=== PATIENT | female | born 1995 | race Caucasian/White ===

== ENCOUNTER → 2020-03-03 | Outpatient (CLI) | payer BC | END | disposition home or self-care (01) | LOC: LABWHC1 10:22 | PROVIDERS: ATTEND Obstetrics & Gynecology | DX: Z34.81 Encounter for supervision of other normal pregnancy, first trimester (principal) | CPT/HCPCS: 36415 ==

== ENCOUNTER → 2020-06-17 | Outpatient (CLI) | payer BC, OTHER ==
[2020-06-17 16:23] LABS: HCT 34.7 % (34.0-46.0); HGB 11.7 gm/dL (11.4-16.0); MCH 29.8 pg (25.0-35.0); MCHC 33.7 g/dL (31.0-37.0); MCV 88.3 fL (80.0-100.0); Mean Platelet Volume 7.6; Platelet Count 231 k/uL (150-450); RBC 3.94 m/uL (3.80-5.40); RDW 13.7 % (11.5-15.5)
[2020-06-17 16:59] LABS: Creatinine,Urine Random 57.8 mg/dL; Protein/Creatinine Ratio,Urine 0.208
[2020-06-17 17:20] LABS: ALT 12 U/L (4-34); AST 17 U/L (14-36); African American GFR (CKD) >90 (>60 ml/min/1.73 sqM); Blood Urea Nitrogen 8 mg/dL (7-17); LDH 340 U/L (313-618); Non-African American GFR(CKD) >90 (>60 ml/min/1.73 sqM); Uric Acid 3.1 mg/dL (3.7-7.4)
== END | disposition home or self-care (01) ==
LOC: LABWHC1 15:46
PROVIDERS: ATTEND Obstetrics & Gynecology
DX: O13.9 Gestational [pregnancy-induced] hypertension without significant proteinuria, unspecified trimester (principal); Z3A.00 Weeks of gestation of pregnancy not specified
CPT/HCPCS: 36415; 82565; 82570; 83036; 83615; 84156; 84450; 84460; 84520; 84550; 85027; 87086

== ENCOUNTER 2020-06-19 23:35 | Observation (INO) | payer BC, OTHER ==
[2020-06-20 00:12] LABS: Appearance,Urine Clear (Clear); Bilirubin,Urine Negative (Negative); Blood,Urine Negative (Negative); Color,Urine Light Yellow; Glucose,Urine (UA) Negative (Negative); Ketones,Urine Negative (Negative); Leukocyte Esterase,Urine Negative (Negative); Nitrite,Urine Negative (Negative); PH, Urine 6.5 (5.0-8.0); Protein,Urine Negative (Negative); Specific Gravity,Urine 1.008 (1.001-1.035); Urobilinogen,Urine <2.0 mg/dL (<2.0)
[2020-06-20 00:37] VITALS: BP 148/88; PULSE 92; RESP 16; TEMP 97.1
[2020-06-20 00:57] LABS: Creatinine,Urine Random 55.8 mg/dL; Protein/Creatinine Ratio,Urine 0.215
[2020-06-20 01:31] LABS: Basophils % (A) 0 %; Eosinophils # (A) 0.3 k/uL (0-0.7); Eosinophils % (A) 3 %; HCT 32.4 % (34.0-46.0); HGB 11.2 gm/dL (11.4-16.0); Lymphocytes # (A) 1.8 k/uL (1.0-4.8); Lymphocytes % (A) 19 %; MCHC 34.4 g/dL (31.0-37.0); MCV 87.2 fL (80.0-100.0); Mean Platelet Volume 7.8; Monocytes # (A) 0.6 k/uL (0-1.0); Monocytes % (A) 6 %; Neutrophils # (A) 6.6 k/uL (1.3-7.7); Neutrophils % (A) 70 %; Platelet Count 222 k/uL (150-450); RBC 3.71 m/uL (3.80-5.40); RDW 13.6 % (11.5-15.5); WBC 9.4 k/uL (3.8-10.6)
[2020-06-20 02:14] LABS: ALT 10 U/L (4-34); AST 17 U/L (14-36); African American GFR (CKD) >90 (>60 ml/min/1.73 sqM); Blood Urea Nitrogen 6 mg/dL (7-17); LDH 349 U/L (313-618); Non-African American GFR(CKD) >90 (>60 ml/min/1.73 sqM); Uric Acid 3.5 mg/dL (3.7-7.4)
[2020-06-20] MEDS ORDERED: LABETALOL 100 MG TAB PO SCH (09:00)
--- NOTE | 2020-06-20 10:39 | P.HPOB ---
History of Present Illness H&P Date: 06/20/20 Chief Complaint: Hypertension Judy was admitted last night for exacerbation of blood pressure issues. 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 She was sent to labor and delivery and preeclamptic labs were again ordered. She did have normal preeclamptic labs 2 or 3 days ago and labs last night were also normal. Since being in labor and delivery and after taking her labetalol dose last night all her blood pressures been in a more acceptable range 140s over 80s and 130s over 70s. We'll monitor blood pressures through the night and as long as they are stable will plan discharged home in the morning and will discuss options for changes in therapy versus modified bedrest and taking her off of work for a few days. On physical exam vital signs are stable other than mildly elevated blood pressure heart regular, lungs clear, extremities without pain. Gravid uterus is noted and a category 1 reactive NST is noted. She denies any signs or symptoms of preeclampsia. Past Medical History Additional Past Medical History / Comment(s): chronic HTN History of Any Multi-Drug Resistant Organisms: None Reported Past Surgical History: Adenoidectomy Additional Past Surgical History / Comment(s): tubes in ears Additional Past Anesthesia/Blood Transfusion Reaction / Comment(s): increased BP after anesthesia Past Psychological History: Anxiety, Depression Smoking Status: Never smoker Past Alcohol Use History: None Reported Past Drug Use History: None Reported - Past Family History Mother Family Medical History: No Reported History Medications and Allergies Home Medications Medication Instructions Recorded Confirmed Type Labetalol HCl [Trandate] 1 tab PO TID 06/19/20 06/19/20 History Pnv No.95/Ferrous Fum/Folic AC 1 tab PO ONCE 06/19/20 06/19/20 History [ Multivitamin Tablet] Allergies Allergy/AdvReac Type Severity Reaction Status Date / Time No Known Allergies Allergy Verified 06/19/20 23:41 Exam Osteopathic Statement: *. No significant issues noted on an osteopathic struc tural exam other than those noted in the History and Physical/Consult. Vital Signs Temp Pulse Resp BP Pulse Ox 06/20/20 00:33 97.1 F L 92 16 148/88 97 12/19/20 00:05 97.6 F 98 16 143/88 98 Intake and Output 06/19/20 06/20/20 06/20/20 22:59 06:59 14:59 Other: # Voids 1 Weight 98.883 kg - OBG Physical Exam Breast: both: normal (no masses) Abdomen: bowel sounds normal, no diffuse tenderness, no bruit present, no guarding noted, no hepatomegaly, no splenomegaly, no mass Vulva: both: normal Vagina: normal moisture, no discharge Cervix: no lesion, no discharge Uterus: normal size, normal contour Adnexa: both: normal Anus/Rectum: normal perianal skin, no rectal mass, no hemorrhoids, heme negative Results Result Diagrams: 06/20/20 01:21 06/20/20 01:21 Abnormal Lab Results - Last 24 Hours (Table) 06/20/20 06/20/20 Range/Units 01:21 01:21 RBC 3.71 L (3.80-5.40) m/uL Hgb 11.2 L (11.4-16.0) gm/dL Hct 32.4 L (34.0-46.0) % BUN 6 L (7-17) mg/dL Creatinine 0.46 L (0.52-1.04) mg/dL Uric Acid 3.5 L (3.7-7.4) mg/dL
--- NOTE | 2020-06-20 10:41 | P.DS ---
Providers Date of admission: 06/20/20 00:15 Attending physician: Tra Maria Primary care physician: Stated None Hospital Course: Judy is feeling well this morning her blood pressures to the night have been stable and at this time we'll plan to continue her labetalol 3 her milligrams twice daily. She is however going to be off of work and do modified bedrest at home with intermittent blood pressure checks and keeping a walk sit we can go over on Monday or if she has any blood pressures above 160 systolic or 110 diastolic she is going to call my answering service and will adjust her medication at that time. She has no signs or symptoms of preeclampsia this morning and otherwise her vital signs are stable. She voices no other complaints and is requesting discharge home. I did speak with both she and her and both agreed to and are understanding of the current treatment plan. Patient Condition at Discharge: Good Plan - Discharge Summary New Discharge Prescriptions: No Action Pnv No.95/Ferrous Fum/Folic AC [ Multivitamin Tablet] 1 tab PO ONCE Labetalol HCl [Trandate] 1 tab PO TID Discharge Medication List Labetalol HCl [Trandate] 1 tab PO TID 06/19/20 [History] Pnv No.95/Ferrous Fum/Folic AC [ Multivitamin Tablet] 1 tab PO ONCE 06/19/20 [History] Follow up Appointment(s)/Referral(s): Tra Maria DO [Doctor of Osteopathic Medicine] - 3 Days Activity/Diet/Wound Care/Special Instructions: Modified bedrest at home. Predominantly laying on her left side. She has appointment with me on Monday for repeat blood pressure check. He is going to get a blood pressure cuff today and check her blood pressure a few times a day and record and if her blood pressures above 160 or above 110 she will notify me and we'll discuss options for changing treatment. Otherwise if blood pressures remained stable modified bedrest may be all she needs as her blood pressures see med to go up when she is at work. Discharge Disposition: HOME SELF-CARE
== END 2020-06-20 11:20 | disposition home or self-care (01) ==
LOC: FBPOP 23:35 → 4FBP 06-20 00:15
PROVIDERS: ADMIT Obstetrics & Gynecology; ATTEND Obstetrics & Gynecology
DX: O16.3 Unspecified maternal hypertension, third trimester (principal); Z3A.32 32 weeks gestation of pregnancy; F41.9 Anxiety disorder, unspecified; F32.9 Major depressive disorder, single episode, unspecified; Z79.899 Other long term (current) drug therapy; Z90.89 Acquired absence of other organs; Z98.890 Other specified postprocedural states
CPT/HCPCS: 59025; 81003; 82565; 82570; 83615; 84156; 84450; 84460; 84520; 84550; 85025; 99215

== ENCOUNTER 2020-06-27 13:42 | Outpatient (CLI) | payer BC, OTHER ==
[2020-06-27 14:23] VITALS: BP 130/75; PULSE 88; RESP 18; TEMP 98.6
--- NOTE | 2020-06-28 05:24 | P.MSEPDOC ---
Presenting Problems - Arrival Data Date of Arrival on Unit: 06/27/20 Time of Arrival on Unit: 13:42 Mode of Transport: Ambulatory - Complaint OB-Reason for Admission/Chief Complaint: NST Comment: Here with order from office for NST Medical History - Information : 1 Para: 0 Term: 0 : 0 Abortions: Spontaneous or Elective: 0 Number of Living Children: 0 - Gestational Age Gestational Age by STEVE (wks/days): 33 Weeks and 3 Days - History Complications: Chronic HTN Review of Systems - Review of Systems Constitutional: No problems Breast: No problems ENT: No problems Cardiovascular: No problems Respiratory: No problems Gastrointestinal: No problems Genitourinary: No problems Musculoskeletal: No problems Neurological: No problems Skin: No problems Vital Signs - Temperature Temperature: 98.6 F Temperature Source: Temporal Artery Scan - Pulse Right Pulse Rate: 88 Pulse Assessment Method: Automatic Cuff - Respirations Respiratory Rate: 18 Oxygen Delivery Method: Room Air O2 Sat by Pulse Oximetry: 97 - Blood Pressure Right Arm Blood Pressure: 130/75 Blood Pressure Mean: 93 Blood Pressure Source: Automatic Cuff Medical Screen Scoring (Pre) - Cervical Exam Dilation: Exam Deferred Effacement: Exam Deferred Membranes: Intact - Uterine Contractions Frequency: N/A Duration: N/A Intensity: N/A - Maternal Vital Signs Maternal Temperature: N/A Maternal Blood Pressure: N/A Signs of Preeclampsia: N/A Maternal Respirations: N/A - Maternal Trauma Maternal Trauma: N/A - Assessment - Baby A Baseline FHR: 125 Heart Rate - NICHD Category: Category I (Normal) = 0 NST: Reactive Position: N/A Station: N/A - Total Score - Baby A Total Score - Baby A: 0 - Total Score - Baby B Total Score - Baby B: 0 - Total Score - Baby C Total Score - Baby C: 0 - Level of Risk - Baby A Level of Risk - Baby A: Low (0-5) - Level of Risk - Baby B Level of Risk - Baby B: Low (0-5) - Level of Risk - Baby C Level of Risk - Baby C: Low (0-5) Physician Notification (Pre) - Physician Notified Physician Notified Date: 06/27/20 Physician Notified Time: 14:04 New Order Received: Yes - Notification Comment Comment: RN spoke with Dr. Wynn regarding pt's NST being reactive, BP 130/75. No other complaints. Pt may DC home with regular follow up. Disposition - Disposition OB Disposition: Discharge to home Discharge Date: 06/27/20 Discharge Time: 14:10 I agree with the RN Medical Screening Exam: Yes Risk & Benefit of care provided described in d/c instruction: Yes Diagnosis: ESSENTIAL (PRIMARY) HYPERTENSION
== END 2020-06-27 14:10 | disposition home or self-care (01) ==
LOC: FBPOP 13:42
PROVIDERS: ATTEND Obstetrics & Gynecology
DX: O99.891 Other specified diseases and conditions complicating pregnancy (principal); I10 Essential (primary) hypertension; Z3A.33 33 weeks gestation of pregnancy
CPT/HCPCS: 59025

== ENCOUNTER 2020-07-03 11:40 | Outpatient (CLI) | payer BC, OTHER ==
--- NOTE | 2020-08-13 17:13 | P.MSEPDOC ---
Presenting Problems - Arrival Data Date of Arrival on Unit: 07/03/20 Time of Arrival on Unit: 11:40 Mode of Transport: Ambulatory Disposition - Disposition Discharge Date: 07/03/20 Discharge Time: 12:07 I agree with the RN Medical Screening Exam: Yes Case reviewed; plan agreed upon as documented in EMR&OBIX.: Yes Diagnosis: GESTATIONAL HTN W/O SIGNIFICANT PROTEINURIA, THIRD TRIMESTER (Pt presented for scheduled NST. NST reactive and pt discharged home to f/u as scheduled. )
== END 2020-07-03 12:07 | disposition home or self-care (01) ==
LOC: FBPOP 11:40
PROVIDERS: ATTEND Obstetrics & Gynecology
DX: O13.3 Gestational [pregnancy-induced] hypertension without significant proteinuria, third trimester (principal); Z3A.00 Weeks of gestation of pregnancy not specified
CPT/HCPCS: 59025

== ENCOUNTER 2020-07-11 10:17 | Outpatient (CLI) | payer BC, OTHER ==
[2020-07-11 10:52] VITALS: BP 145/88; PULSE 97; RESP 16; TEMP 97.6
--- NOTE | 2020-07-11 14:43 | P.MSEPDOC ---
Presenting Problems - Arrival Data Date of Arrival on Unit: 07/11/20 Time of Arrival on Unit: 10:20 Mode of Transport: Ambulatory - Complaint OB-Reason for Admission/Chief Complaint: NST Medical History - Information : 1 Para: 0 Number of Living Children: 1 - Gestational Age Gestational Age by STEVE (wks/days): 35 Weeks and 3 Days - History Complications: Chronic HTN Review of Systems - Review of Systems Constitutional: No problems Breast: No problems ENT: No problems Cardiovascular: No problems Respiratory: No problems Gastrointestinal: No problems Genitourinary: No problems Musculoskeletal: No problems Neurological: No problems Skin: No problems Vital Signs - Temperature Temperature: 97.6 F Temperature Source: Temporal Artery Scan - Pulse Right Sitting Brachial Pulse Rate: 97 Pulse Assessment Method: Automatic Cuff - Respirations Respiratory Rate: 16 Oxygen Delivery Method: Room Air - Blood Pressure Right Arm Sitting Blood Pressure: 145/88 Blood Pressure Mean: 107 Blood Pressure Source: Automatic Cuff Medical Screen Scoring (Pre) - Cervical Exam Dilation: Exam Deferred Effacement: Exam Deferred - Uterine Contractions Frequency: N/A Duration: N/A Intensity: N/A - Maternal Vital Signs Maternal Temperature: N/A Maternal Blood Pressure: N/A Signs of Preeclampsia: N/A Maternal Respirations: N/A - Maternal Trauma Maternal Trauma: N/A - Assessment - Baby A Baseline FHR: 130 Heart Rate - NICHD Category: Category I (Normal) = 0 NST: Reactive - Total Score - Baby A Total Score - Baby A: 0 - Total Score - Baby B Total Score - Baby B: 0 - Total Score - Baby C Total Score - Baby C: 0 - Level of Risk - Baby A Level of Risk - Baby A: Low (0-5) - Level of Risk - Baby B Level of Risk - Baby B: Low (0-5) - Level of Risk - Baby C Level of Risk - Baby C: Low (0-5) Physician Notification (Pre) - Physician Notified Physician Notified Date: 07/11/20 Physician Notified Time: 10:40 New Order Received: Yes - Notification Comment Comment: discharge pt at this time Disposition - Disposition OB Disposition: Discharge to home Discharge Date: 07/11/20 Discharge Time: 10:45 I agree with the RN Medical Screening Exam: Yes Risk & Benefit of care provided described in d/c instruction: Yes Diagnosis: PRE-EXISTING ESSENTIAL HTN COMP , THIRD TRIMESTER
== END 2020-07-11 10:45 | disposition home or self-care (01) ==
LOC: FBPOP 10:17
PROVIDERS: ATTEND Obstetrics & Gynecology
DX: O10.013 Pre-existing essential hypertension complicating pregnancy, third trimester (principal); Z3A.35 35 weeks gestation of pregnancy
CPT/HCPCS: 59025; 99213

== ENCOUNTER 2020-07-16 16:59 | Outpatient (CLI) | payer BC, OTHER ==
[2020-07-16 17:54] LABS: Basophils % (A) 0 %; Eosinophils # (A) 0.1 k/uL (0-0.7); Eosinophils % (A) 1 %; HCT 31.6 % (34.0-46.0); HGB 10.9 gm/dL (11.4-16.0); Lymphocytes # (A) 1.3 k/uL (1.0-4.8); Lymphocytes % (A) 14 %; MCH 30.3 pg (25.0-35.0); MCHC 34.5 g/dL (31.0-37.0); MCV 87.9 fL (80.0-100.0); Mean Platelet Volume 7.6; Monocytes # (A) 0.6 k/uL (0-1.0); Monocytes % (A) 6 %; Neutrophils # (A) 6.6 k/uL (1.3-7.7); Neutrophils % (A) 76 %; Platelet Count 264 k/uL (150-450); RBC 3.59 m/uL (3.80-5.40); RDW 13.4 % (11.5-15.5); WBC 8.8 k/uL (3.8-10.6)
[2020-07-16 18:11] LABS: ALT 13 U/L (4-34); AST 18 U/L (14-36); African American GFR (CKD) >90 (>60 ml/min/1.73 sqM); Blood Urea Nitrogen 7 mg/dL (7-17); LDH 306 U/L (313-618); Non-African American GFR(CKD) >90 (>60 ml/min/1.73 sqM); Uric Acid 3.6 mg/dL (3.7-7.4)
[2020-07-16 18:11] LABS: Creatinine,Urine Random 101.9 mg/dL; Protein/Creatinine Ratio,Urine 0.098
[2020-07-16 18:14] LABS: Appearance,Urine Cloudy (Clear); Bacteria,Urine Occasional /hpf; Bilirubin,Urine Negative (Negative); Blood,Urine Negative (Negative); Color,Urine Yellow; Glucose,Urine (UA) Negative (Negative); Hyaline Casts,Urine 1 /lpf (0-2); Ketones,Urine Negative (Negative); Leukocyte Esterase,Urine Trace (Negative); Mucus,Urine Few /hpf; Nitrite,Urine Negative (Negative); Protein,Urine Trace (Negative); RBC,Urine 1 /hpf (0-5); Specific Gravity,Urine 1.015 (1.001-1.035); Squamous Epithelial Cell,Urine 7 /hpf (0-4); Urobilinogen,Urine <2.0 mg/dL (<2.0); WBC,Urine 4 /hpf (0-5)
[2020-07-16 18:35] VITALS: BP 139/87; PULSE 94; RESP 16; TEMP 97.7
--- NOTE | 2020-07-25 20:23 | P.MSEPDOC ---
Presenting Problems - Arrival Data Date of Arrival on Unit: 07/16/20 Time of Arrival on Unit: 16:59 Mode of Transport: Ambulatory - Complaint OB-Reason for Admission/Chief Complaint: PIH Comment: Pt sent c\script for PIH workup Medical History - Information : 1 Para: 0 - Gestational Age Gestational Age by STEVE (wks/days): 36 Weeks and 1 Days - History Complications: Chronic HTN Review of Systems - Review of Systems Constitutional: No problems Breast: No problems ENT: No problems Cardiovascular: No problems Respiratory: No problems Gastrointestinal: No problems Genitourinary: No problems Musculoskeletal: No problems Neurological: No problems Skin: No problems Vital Signs - Temperature Temperature: 97.7 F Temperature Source: Temporal Artery Scan - Pulse Right Sitting Brachial Pulse Rate: 94 Pulse Assessment Method: Automatic Cuff - Respirations Respiratory Rate: 16 Oxygen Delivery Method: Room Air O2 Sat by Pulse Oximetry: 97 - Blood Pressure Right Arm Sitting Blood Pressure: 139/87 Blood Pressure Mean: 104 Blood Pressure Source: Automatic Cuff Medical Screen Scoring (Pre) - Cervical Exam Dilation: Exam Deferred Effacement: Exam Deferred Membranes: Intact - Uterine Contractions Frequency: N/A Duration: N/A Intensity: N/A - Maternal Vital Signs Maternal Temperature: N/A Maternal Blood Pressure: N/A Signs of Preeclampsia: N/A Maternal Respirations: N/A - Maternal Trauma Maternal Trauma: N/A - Assessment - Baby A Baseline FHR: 125 Heart Rate - NICHD Category: Category I (Normal) = 0 NST: Reactive Position: N/A Station: N/A - Total Score - Baby A Total Score - Baby A: 0 - Total Score - Baby B Total Score - Baby B: 0 - Total Score - Baby C Total Score - Baby C: 0 - Level of Risk - Baby A Level of Risk - Baby A: Low (0-5) - Level of Risk - Baby B Level of Risk - Baby B: Low (0-5) - Level of Risk - Baby C Level of Risk - Baby C: Low (0-5) Physician Notification (Pre) - Physician Notified Physician Notified Date: 07/16/20 Physician Notified Time: 18:20 New Order Received: Yes - Notification Comment Comment: Spk c\Dr. Wynn, aware of pts presence and hx, reviewed pts BPs while in. triage, reviewed labs. States to d/c home, maintain bedrest, follow up as scheduled. c\Dr. Maria. Disposition - Disposition OB Disposition: Triage, Discharge to home Discharge Date: 07/16/20 Discharge Time: 18:30 I agree with the RN Medical Screening Exam: Yes Case reviewed; plan agreed upon as documented in EMR&OBIX.: Yes Diagnosis: UNSPECIFIED MATERNAL HYPERTENSION, COMP THE PUERPERIUM
== END 2020-07-16 18:30 | disposition home or self-care (01) ==
LOC: FBPOP 16:59
PROVIDERS: ATTEND Obstetrics & Gynecology
DX: O16.5 Unspecified maternal hypertension, complicating the puerperium (principal); Z3A.36 36 weeks gestation of pregnancy
CPT/HCPCS: 59025; 81001; 82565; 82570; 83615; 84156; 84450; 84460; 84520; 84550; 85025

== ENCOUNTER 2020-07-21 16:40 | Inpatient (IN) | payer BC, OTHER ==
--- NOTE | 2020-07-21 16:56 | P.HPOB ---
History of Present Illness H&P Date: 07/21/20 Chief Complaint: Intrauterine at 37 weeks: Hypertension Judy is a 25-year-old at 36 weeks 6 days gestation who arrives for Cervidil induction. She was seen in my office this afternoon and blood pressure was noted to be 160/94. She's had blood pressure issues throughout the and is a chronic hypertensive on labetalol 300 mg twice daily. In reviewing recommendations from maternal- medicine the rectum and patient was to have her deliver between 37 weeks 0 days and 37 weeks 6 days station, however with her blood pressure again being elevated above 160 the decision to move forward with Cervidil ripening tonight and induction at 37 weeks has been made. Risks of Cervidil ripening and induction were discussed with patient in detail and did include potential risk for abruption, bleeding, need for section, heart tone issues. Her course otherwise had been relatively unremarkable and she did comanage with maternal- medicine throughout the . Pertinent labs did include O+ blood type, Rh and it was negative, rubella is nonimmune. Hepatitis B surface antigen RPR and HIV were all negative as well as groupie strep. At this time she shows no signs or symptoms of preeclampsia and had recent lab work done. Should symptoms develop will plan to order labs and she may as she is aware of need mag sulfate or other measures to combat preeclampsia but at this time she does not appear to have preeclampsia. She denies headache, epigastric pain or visual changes and has normal deep tendon reflexes and scant peripheral and no central edema. A category 1 tracing is noted prior to Cervidil. Past Medical History Additional Past Medical History / Comment(s): chronic HTN History of Any Multi-Drug Resistant Organisms: None Reported Past Surgical History: Adenoidectomy Additional Past Surgical History / Comment(s): tubes in ears Additional Past Anesthesia/Blood Transfusion Reaction / Comment(s): increased BP after anesthesia Smoking Status: Never smoker - Past Family History Mother Family Medical History: No Reported History Medications and Allergies Home Medications Medication Instructions Recorded Confirmed Type Labetalol HCl [Trandate] 1 tab PO BID 06/19/20 07/16/20 History Pnv No.95/Ferrous Fum/Folic AC 1 tab PO DAILY 06/19/20 07/16/20 History [ Multivitamin Tablet] Aspirin [Children's Aspirin] 1 tab PO DAILY 06/27/20 07/16/20 History Esomeprazole Magnesium [NexIUM 20 mg PO DAILY 07/11/20 07/16/20 History 24Hr] Allergies Allergy/AdvReac Type Severity Reaction Status Date / Time No Known Allergies Allergy Verified 07/16/20 17:06 Exam Osteopathic Statement: *. No significant issues noted on an osteopathic st ructural exam other than those noted in the History and Physical/Consult. - OBG Physical Exam Breast: both: normal (no masses) Abdomen: bowel sounds normal, no diffuse tenderness, no bruit present, no guarding noted, no hepatomegaly, no splenomegaly, no mass Vulva: both: normal Vagina: normal moisture, no discharge Cervix: no lesion, no discharge Uterus: normal size, normal contour Adnexa: both: normal Anus/Rectum: normal perianal skin, no rectal mass, no hemorrhoids, heme negative
[2020-07-21] MEDS ORDERED: BUTORPHANOL 1 MG/ML 1 ML VIAL IV PRN (17:37)
[2020-07-21] MEDS ORDERED: DINOPROSTONE 10 MG INSERT.ER VAGINAL ONE (17:37)
[2020-07-21] MEDS ORDERED: ZOLPIDEM 5 MG TAB PO PRN (17:37)
[2020-07-21] MEDS: LABETALOL 100 MG TAB PO SCH (20:15)
[2020-07-21 20:49] LABS: Basophils # (A) 0.1 k/uL (0-0.2); Basophils % (A) 1 %; Eosinophils # (A) 0.2 k/uL (0-0.7); Eosinophils % (A) 2 %; HCT 33.7 % (34.0-46.0); HGB 11.6 gm/dL (11.4-16.0); Lymphocytes # (A) 1.4 k/uL (1.0-4.8); Lymphocytes % (A) 15 %; MCH 29.9 pg (25.0-35.0); MCHC 34.2 g/dL (31.0-37.0); MCV 87.4 fL (80.0-100.0); Mean Platelet Volume 7.3; Monocytes # (A) 0.5 k/uL (0-1.0); Monocytes % (A) 5 %; Neutrophils # (A) 7.4 k/uL (1.3-7.7); Neutrophils % (A) 76 %; Platelet Count 241 k/uL (150-450); RBC 3.86 m/uL (3.80-5.40); RDW 13.7 % (11.5-15.5); WBC 9.7 k/uL (3.8-10.6)
[2020-07-22] MEDS: LACTATED RINGERS 1,000 ML IV SCH ×4 (05:20→21:47)
[2020-07-22] MEDS ORDERED: METHYLERGONOVINE 0.2 MG/ML 1 ML AMP IM PRN (05:21)
[2020-07-22] MEDS ORDERED: LIDOCAINE 0.5% (PF) 5 MG/ML (50 ML SDV) SQ PRN (05:21)
[2020-07-22] MEDS ORDERED: TERBUTALINE 1 MG/ML VIAL SQ PRN (05:21)
[2020-07-22] MEDS ORDERED: CARBOPROST TROMETHAMINE 250 MCG/ML 1 ML AMP IM PRN (05:21)
[2020-07-22] MEDS ORDERED: OXYTOCIN 10 UNIT/ML 1 ML VIAL IM PRN (05:21)
[2020-07-22] MEDS ORDERED: OXYTOCIN 30 UNITS/500 ML NS 30 UNIT in SALINE 1 500ML.BAG IV SCH (05:30)
[2020-07-22] MEDS ORDERED: LACTATED RINGERS 1,000 ML IV SCH (05:30)
[2020-07-22] MEDS: LABETALOL 100 MG TAB PO SCH ×2 (07:50→21:46)
[2020-07-22] MEDS ORDERED: SODIUM CHLORIDE 0.9% 100 ML BAG ONE (14:04)
[2020-07-22] MEDS ORDERED: fentaNYL (PF) 50 MCG/ML 5 ML AMP ONE (14:04)
[2020-07-22] MEDS ORDERED: ROPIVACAINE 5MG/ML 20ML VIAL ONE (14:04)
[2020-07-22] MEDS ORDERED: ONDANSETRON 4 MG/2 ML VIAL IVP PRN (19:17)
[2020-07-23] MEDS ORDERED: ACETAMINOPHEN TAB 325 MG TAB PO PRN (01:52)
[2020-07-23] MEDS ORDERED: diphenhydrAMINE 50 MG CAP PO PRN (01:52)
[2020-07-23] MEDS ORDERED: BENZOCAINE/MENTHOL SPRAY 1 GM/SPRAY AEROSOL TOPICAL PRN (01:52)
[2020-07-23] MEDS ORDERED: diphenhydrAMINE 50 MG/ML 1 ML VIAL IVP PRN ×2 (01:52)
[2020-07-23] MEDS ORDERED: diphenhydrAMINE 25 MG CAP PO PRN (01:52)
[2020-07-23] MEDS ORDERED: LANOLIN CREAM 5 GM TUBE TOPICAL PRN (01:52)
[2020-07-23] MEDS ORDERED: HYDROCORTISONE 2.5% RECTAL CREAM 30 GM TUBE RECTAL PRN (01:52)
[2020-07-23] MEDS ORDERED: HYDROcodone/APAP 5-325MG 1 EACH TAB PO PRN (01:52)
[2020-07-23] MEDS ORDERED: ZOLPIDEM 5 MG TAB PO PRN (01:52)
--- NOTE | 2020-07-23 01:56 | P.PROBDLV ---
Vaginal Delivery Note - . Vaginal Delivery Note: Judy progressed to complete and pushing with spontaneous vaginal delivery of a viable male over an intact perineum. Following delivery of the head from left occiput anterior position anterior posterior shoulders were easily delivered with gentle downward and upward traction followed by the remainder the baby. Mouth and nares were then bulb suctioned and baby was placed on mother's abdomen where the umbilical cord was clamped cut usual fashion following 30 seconds of cord pulsation. Nursery personnel was present and some care. Placenta was then delivered intact Pitocin was added to the IV. Bilateral vaginal wall/periurethral avulsion's were noted and were repaired in running fashion with 3-0 Vicryl following 1% Xylocaine for analgesia. scores were 8 and 9 at one and 5 minutes respectively and weight was 6 lbs. 13 oz. Both mother and baby are currently stable following delivery.
[2020-07-23] MEDS: IBUPROFEN 600 MG TAB PO PRN ×2 (03:01→19:39)
[2020-07-23] MEDS ORDERED: MEASLES-MUMPS-RUBELLA VACC/PF 12,500 UNIT/0.5 ML VIAL SQ ONE (03:39)
[2020-07-23] MEDS: SIMETHICONE 80 MG CHEWABLE PO PRN (04:26)
[2020-07-23] MEDS: LABETALOL 100 MG TAB PO SCH ×2 (10:00→19:49)
[2020-07-23] MEDS: SENNOSIDES-DOCUSATE SODIUM 1 EACH TAB PO SCH ×2 (10:51→19:40)
[2020-07-24] MEDS: IBUPROFEN 600 MG TAB PO PRN ×3 (05:56→23:56)
[2020-07-24] MEDS: SENNOSIDES-DOCUSATE SODIUM 1 EACH TAB PO SCH ×2 (08:08→21:01)
[2020-07-24] MEDS: LABETALOL 100 MG TAB PO SCH ×2 (08:13→21:00)
--- NOTE | 2020-07-24 08:22 | P.PNOBGVD ---
Subjective - Subjective Principal diagnosis: Post day 1 Interval history: Overall Judy is doing very well. She is ambulating, voiding and tolerating her diet. Her blood pressures have been improved since having the baby and last blood pressure was minimally elevated at 140/90 we'll plan to continue current care for now with no designed to change her blood pressure medicines at this time. We'll most likely have her toolroom checker or primary care provider manage that once she is out of her recovery phase and done breast-feeding. Otherwise she is doing well. Vital signs again are overall stable. Heart regular, lungs clear, extremities are without pain abdomen is soft and uterus is firm. Lochia is reported light. Assessment day 1. Plan continue care Patient reports: Reports appetite normal, Reports voiding normally, Reports pain well controlled, Reports ambulating normally [place]: other (Jaundiced) Objective - Latest Vital Signs Latest vital signs: Vital Signs Temp Pulse Resp BP 07/24/20 04:00 97.8 F 84 20 123/81 07/23/20 20:00 98.0 F 99 16 141/89 07/23/20 16:00 98.5 F 76 16 130/76 07/23/20 12:00 98.3 F 72 16 132/78 Intake and Output 07/23/20 07/24/20 07/24/20 22:59 06:59 14:59 Other: # Voids 1 2
[2020-07-24] MEDS: SIMETHICONE 80 MG CHEWABLE PO PRN (10:21)
[2020-07-25] MEDS: LABETALOL 100 MG TAB PO SCH (08:26)
[2020-07-25 09:11] VITALS: RESP 18
[2020-07-25] MEDS: SENNOSIDES-DOCUSATE SODIUM 1 EACH TAB PO SCH (09:12)
--- NOTE | 2020-07-25 09:53 | P.DS ---
Providers Date of admission: 07/21/20 16:40 Expected date of discharge: 07/25/20 Attending physician: Tra Maria Primary care physician: Stated None - Discharge Diagnosis(es) (1) Status post normal vaginal delivery Current Visit: Yes Status: Acute Hospital Course: She presented for Cervidil induction of labor due to worsening chronic hypertension despite medication. She underwent normal vaginal delivery. course.. She'll be discharged home post day #1 in stable condition to follow-up Dr. Mckinley in 6 weeks. Plan - Discharge Summary New Discharge Prescriptions: No Action Pnv No.95/Ferrous Fum/Folic AC [ Multivitamin Tablet] 1 tab PO DAILY Labetalol HCl [Trandate] 1 tab PO BID Aspirin [Children's Aspirin] 1 tab PO DAILY Discharge Medication List Labetalol HCl [Trandate] 1 tab PO BID 06/19/20 [History] Pnv No.95/Ferrous Fum/Folic AC [ Multivitamin Tablet] 1 tab PO DAILY 06/19/20 [History] Aspirin [Children's Aspirin] 1 tab PO DAILY 06/27/20 [History] Follow up Appointment(s)/Referral(s): Tra Maria DO [Doctor of Osteopathic Medicine] - 6 Weeks Discharge Disposition: HOME SELF-CARE
[2020-07-25] MEDS: IBUPROFEN 600 MG TAB PO PRN (12:02)
[2020-07-25 17:42] VITALS: BP 132/75; PULSE 74; TEMP 98.1
== END 2020-07-25 17:02 | disposition home or self-care (01) | DRG 806 ==
LOC: 4FBP 16:40
PROVIDERS: ADMIT Obstetrics & Gynecology; ATTEND Obstetrics & Gynecology
PROC: 3E0P7VZ Introduction of Hormone into Female Reproductive, Via Natural or Artificial Opening (ICD-10-PCS; principal; 2020-07-21)
PROC: 10E0XZZ Delivery of Products of Conception, External Approach (ICD-10-PCS; principal; 2020-07-21)
PROC: 3E0R3NZ Introduction of Analgesics, Hypnotics, Sedatives into Spinal Canal, Percutaneous Approach (ICD-10-PCS; principal; 2020-07-21)
PROC: 00HU33Z Insertion of Infusion Device into Spinal Canal, Percutaneous Approach (ICD-10-PCS; principal; 2020-07-21)
PROC: 0KQM0ZZ Repair Perineum Muscle, Open Approach (ICD-10-PCS; principal; 2020-07-21)
DX: O10.92 Unspecified pre-existing hypertension complicating childbirth (principal); O71.4 Obstetric high vaginal laceration alone; Z37.0 Single live birth; Z90.89 Acquired absence of other organs; Z79.82 Long term (current) use of aspirin; Z79.899 Other long term (current) drug therapy; O71.82 Other specified trauma to perineum and vulva; Z3A.37 37 weeks gestation of pregnancy
CPT/HCPCS: 85025; 86850; 86900; 86901; 88307; 90707

== ENCOUNTER 2020-12-17 12:00 | Emergency (ER) | payer OTHER ==
[2020-12-17] MEDS ORDERED: LABETALOL 5 MG/ML VIAL MDV IVP STA (13:23)
[2020-12-17 13:52] LABS: Basophils % (A) 0 %; Eosinophils # (A) 0.2 k/uL (0-0.7); Eosinophils % (A) 4 %; HCT 37.1 % (34.0-46.0); HGB 13.1 gm/dL (11.4-16.0); Lymphocytes # (A) 0.9 k/uL (1.0-4.8); Lymphocytes % (A) 17 %; MCHC 35.3 g/dL (31.0-37.0); MCV 79.4 fL (80.0-100.0); Mean Platelet Volume 7.6; Monocytes # (A) 0.4 k/uL (0-1.0); Monocytes % (A) 7 %; Neutrophils # (A) 3.8 k/uL (1.3-7.7); Neutrophils % (A) 71 %; Platelet Count 202 k/uL (150-450); RBC 4.67 m/uL (3.80-5.40); RDW 14.4 % (11.5-15.5); WBC 5.4 k/uL (3.8-10.6)
[2020-12-17 13:58] LABS: Appearance,Urine Cloudy (Clear); Bacteria,Urine Occasional /hpf; Bilirubin,Urine Negative (Negative); Blood,Urine Negative (Negative); Color,Urine Yellow; Glucose,Urine (UA) Negative (Negative); Ketones,Urine Negative (Negative); Leukocyte Esterase,Urine Negative (Negative); Mucus,Urine Rare /hpf; Nitrite,Urine Negative (Negative); Protein,Urine Negative (Negative); RBC,Urine 1 /hpf (0-5); Specific Gravity,Urine 1.008 (1.001-1.035); Squamous Epithelial Cell,Urine 16 /hpf (0-4); Urobilinogen,Urine <2.0 mg/dL (<2.0); WBC,Urine 2 /hpf (0-5)
[2020-12-17 14:13] LABS: ALT 11 U/L (4-34); AST 20 U/L (14-36); African American GFR (CKD) >90 (>60 ml/min/1.73 sqM); Albumin 4.4 g/dL (3.5-5.0); Alkaline Phosphatase 72 U/L (38-126); Anion Gap 8 mmol/L; Blood Urea Nitrogen 8 mg/dL (7-17); Calcium 9.5 mg/dL (8.4-10.2); Carbon Dioxide 24 mmol/L (22-30); Chloride 104 mmol/L (98-107); Glucose 97 mg/dL (74-99); Non-African American GFR(CKD) >90 (>60 ml/min/1.73 sqM); Potassium 3.8 mmol/L (3.5-5.1); Sodium 136 mmol/L (137-145); Total Bilirubin 0.5 mg/dL (0.2-1.3); Total Protein 7.2 g/dL (6.3-8.2)
--- NOTE | 2020-12-17 18:14 | US ---
EXAMINATION TYPE: Transabdominal DATE OF EXAM: 12/17/2020 4:56 PM COMPARISON: NONE CLINICAL HISTORY: HTN. HTN EXAM PERFORMED: Transvaginal (TV) and Transabdominal (TA) EXAM MEASUREMENTS: GESTATIONAL AGE / DATING Physician Established: Not yet established Dates by LMP: (9 weeks/1 days) EDC: 07/21/2020 Dates by First Scan: No previous this is first scan Dates by Current Scan for no IUP seen at this time. MATERNAL ANATOMY Uterus: 11.1 x 4.9 x 5.7 cm Right Ovary: Obscured by bowel gas Left Ovary: Obscured by bowel gas Post CDS / Adnexa: wnl Presence of free fluid: wnl Presence of corpus luteal cyst: no Presence of subchorionic bleed: no GESTATION / SURVEY MSD: 0.55 cm Yolk Sac (normal less than 6mm): 2 mm IUP: No IUP seen at this time Beta HcG (if available): Not available at this time IMPRESSION: There is a 2 mm yolk sac with intrauterine gestational sac. No adnexal mass. Follow-up exam recommend ed in 14 days to confirm a living fetus.
--- NOTE | 2020-12-17 18:32 | ED ---
General Adult HPI - General Chief complaint: Recheck/Abnormal Lab/Rx Stated complaint: ?8wks preg, high BP Source: patient, RN notes reviewed Mode of arrival: ambulatory Limitations: no limitations - History of Present Illness Initial comments: 25-year-old well-appearing white female patient presents to the emergency room with increased blood pressure last night at work. Patient states that her blood pressure was 186/112 at work around 6:30. Patient states that she does have a history of hypertension and takes 300 mg of labetalol twice a day and has been taking it for several years however her concern was that she is 8 weeks and she just wanted to make sure that it would not interfere with the . Patient has not had a visit yet. Patient did deliver a baby boy in July 2020 with no complications. Patient denies any chest pain, shortness of breath, nausea vomiting diarrhea or fevers. She denies any headache at this time. Patient also denies any vaginal bleeding or cramping. Patient denies smoking or drinking on a daily basis. -: hour(s) (12) Severity scale (1-10): 0 Associated Symptoms: denies other symptoms Treatments Prior to Arrival: none - Related Data Home Medications Medication Instructions Recorded Confirmed Labetalol HCl [Trandate] 300 mg PO BID 06/19/20 12/17/20 Allergies Allergy/AdvReac Type Severity Reaction Status Date / Time No Known Allergies Allergy Verified 12/17/20 13:50 Last menstrual period: 10/14/20 Patient : Yes Number of weeks : 8 (Has not had visit for confirmation) Review of Systems ROS Statement: Those systems with pertinent positive or pertinent negative responses have been documented in the HPI. ROS Other: All systems not noted in ROS Statement are negative. Past Medical History Past Medical History: Hypertension Additional Past Medical History / Comment(s): chronic HTN History of Any Multi-Drug Resistant Organisms: None Reported Past Surgical History: Adenoidectomy Additional Past Surgical History / Comment(s): tubes in ears Additional Past Anesthesia/Blood Transfusion Reaction / Comment(s): increased BP after anesthesia Past Psychological History: Anxiety, Depression Smoking Status: Never smoker Past Alcohol Use History: None Reported Past Drug Use History: Marijuana - Past Family History Mother Family Medical History: No Reported History General Exam Limitations: no limitations General appearance: alert, in no apparent distress Head exam: Present: atraumatic, normocephalic, normal inspection Eye exam: Present: normal appearance, PERRL, EOMI. Absent: scleral icterus, conjunctival injection, periorbital swelling ENT exam: Present: normal exam, normal oropharynx, mucous membranes moist Neck exam: Present: normal inspection, full ROM. Absent: tenderness, meningismus, lymphadenopathy, thyromegaly Respiratory exam: Present: normal lung sounds bilaterally. Absent: respiratory distress, wheezes, rales, rhonchi, stridor, decreased breath sounds Cardiovascular Exam: Present: regular rate, normal rhythm, normal heart sounds. Absent: systolic murmur, diastolic murmur, rubs, gallop, clicks GI/Abdominal exam: Present: soft, normal bowel sounds. Absent: distended, te nderness, guarding, rebound, rigid Rectal exam: Present: deferred Extremities exam: Present: normal inspection, full ROM, normal capillary refill. Absent: tenderness, pedal edema, joint swelling, calf tenderness Back exam: Present: normal inspection, full ROM. Absent: tenderness, CVA tenderness (R), CVA tenderness (L), muscle spasm, paraspinal tenderness, vertebral tenderness, rash noted Neurological exam: Present: alert, oriented X3, CN II-XII intact Psychiatric exam: Present: normal affect, normal mood Skin exam: Present: warm, dry, intact, normal color. Absent: rash, cyanosis, diaphoretic, erythema, petechiae, pallor, mottled Course Vital Signs 12/17/20 12/17/20 12/17/20 12:15 12:37 12:45 Temperature 99.2 F Pulse Rate 93 81 79 Respiratory 18 18 18 Rate Blood Pressure 186/145 178/111 156/92 O2 Sat by Pulse 98 99 Oximetry 12/17/20 12/17/20 12/17/20 13:30 14:00 14:30 Temperature Pulse Rate 68 75 87 Respiratory 18 18 18 Rate Blood Pressure 148/91 139/84 149/95 O2 Sat by Pulse 99 99 100 Oximetry 12/17/20 15:00 Temperature Pulse Rate 79 Respiratory 18 Rate Blood Pressure 131/92 O2 Sat by Pulse 97 Oximetry Medical Decision Making - Medical Decision Making Patient's blood pressure is down to 131/92 at discharge, ultrasound shows 2 mm yolk sac but no IUP with recommended follow-up in 14 days which is consistent with patient's LMP date of 10/14/2020. Patient denies any vaginal bleeding or abdominal pain. Patient has no shortness of breath or chest pain. Patient does have a history of hypertension and is on currently 300 mg of labetalol twice a day. Patient will be directed to follow up with primary care doctor for continuation of care. Labs are within normal limits with a BUN of 8 and creatinine of 0.67. Patient agreeable to this plan of care. Case discussed with Dr. Angeles - Lab Data Result diagrams: 12/17/20 13:37 12/17/20 13:37 Lab Results 12/17/20 12/17/20 12/17/20 Range/Units 13:37 13:37 13:37 WBC 5.4 (3.8-10.6) k/uL RBC 4.67 (3.80-5.40) m/uL Hgb 13.1 (11.4-16.0) gm/dL Hct 37.1 (34.0-46.0) % MCV 79.4 L (80.0-100.0) fL MCH 28.0 (25.0-35.0) pg MCHC 35.3 (31.0-37.0) g/dL RDW 14.4 (11.5-15.5) % Plt Count 202 (150-450) k/uL MPV 7.6 Neutrophils % 71 % Lymphocytes % 17 % Monocytes % 7 % Eosinophils % 4 % Basophils % 0 % Neutrophils # 3.8 (1.3-7.7) k/uL Lymphocytes # 0.9 L (1.0-4.8) k/uL Monocytes # 0.4 (0-1.0) k/uL Eosinophils # 0.2 (0-0.7) k/uL Basophils # 0.0 (0-0.2) k/uL Sodium 136 L (137-145) mmol/L Potassium 3.8 (3.5-5.1) mmol/L Chloride 104 (98-107) mmol/L Carbon Dioxide 24 (22-30) mmol/L Anion Gap 8 mmol/L BUN 8 (7-17) mg/dL Creatinine 0.67 (0.52-1.04) mg/dL Est GFR (CKD-EPI)AfAm >90 (>60 ml/min/1.73 sqM) Est GFR (CKD-EPI)NonAf >90 (>60 ml/min/1.73 sqM) Glucose 97 (74-99) mg/dL Calcium 9.5 (8.4-10.2) mg/dL Magnesium (1.6-2.3) mg/dL Total Bilirubin 0.5 (0.2-1.3) mg/dL AST 20 (14-36) U/L ALT 11 (4-34) U/L Alkaline Phosphatase 72 (38-126) U/L Total Protein 7.2 (6.3-8.2) g/dL Albumin 4.4 (3.5-5.0) g/dL Urine Color Yellow Urine Appearance Cloudy H (Clear) Urine pH 7.0 (5.0-8.0) Ur Specific [place] 1.008 (1.001-1.035) Urine Protein Negative (Negative) Urine Glucose (UA) Negative (Negative) Urine Ketones Negative (Negative) Urine Blood Negative (Negative) Urine Nitrite Negative (Negative) Urine Bilirubin Negative (Negative) Urine Urobilinogen <2.0 (<2.0) mg/dL Ur Leukocyte Esterase Negative (Negative) Urine RBC 1 (0-5) /hpf Urine WBC 2 (0-5) /hpf Ur Squamous Epith Cells 16 H (0-4) /hpf Urine Bacteria Occasional H (None) /hpf Urine Mucus Rare H (None) /hpf // Range/Units 13:37 WBC (3.8-10.6) k/uL RBC (3.80-5.40) m/uL Hgb (11.4-16.0) gm/dL Hct (34.0-46.0) % MCV (80.0-100.0) fL MCH (25.0-35.0) pg MCHC (31.0-37.0) g/dL RDW (11.5-15.5) % Plt Count (150-450) k/uL MPV Neutrophils % % Lymphocytes % % Monocytes % % Eosinophils % % Basophils % % Neutrophils # (1.3-7.7) k/uL Lymphocytes # (1.0-4.8) k/uL Monocytes # (0-1.0) k/uL Eosinophils # (0-0.7) k/uL Basophils # (0-0.2) k/uL Sodium (137-145) mmol/L Potassium (3.5-5.1) mmol/L Chloride (98-107) mmol/L Carbon Dioxide (22-30) mmol/L Anion Gap mmol/L BUN (7-17) mg/dL Creatinine (0.52-1.04) mg/dL Est GFR (CKD-EPI)AfAm (>60 ml/min/1.73 sqM) Est GFR (CKD-EPI)NonAf (>60 ml/min/1.73 sqM) Glucose (74-99) mg/dL Calcium (8.4-10.2) mg/dL Magnesium 1.9 (1.6-2.3) mg/dL Total Bilirubin (0.2-1.3) mg/dL AST (14-36) U/L ALT (4-34) U/L Alkaline Phosphatase (38-126) U/L Total Protein (6.3-8.2) g/dL Albumin (3.5-5.0) g/dL Urine Color Urine Appearance (Clear) Urine pH (5.0-8.0) Ur Specific [place] (1.001-1.035) Urine Protein (Negative) Urine Glucose (UA) (Negative) Urine Ketones (Negative) Urine Blood (Negative) Urine Nitrite (Negative) Urine Bilirubin (Negative) Urine Urobilinogen (<2.0) mg/dL Ur Leukocyte Esterase (Negative) Urine RBC (0-5) /hpf Urine WBC (0-5) /hpf Ur Squamous Epith Cells (0-4) /hpf Urine Bacteria (None) /hpf Urine Mucus (None) /hpf Disposition Clinical Impression: Hypertension Clinical Impression: (Ruled Out): Hypertension affecting in first trimester Disposition: HOME SELF-CARE Condition: Good Additional Instructions: Continue daily medications of labetalol twice a day. Follow-up with the primary care doctor, return if worsening symptoms Is patient prescribed a controlled substance at d/c from ED?: No Referrals: Seth Coughlin MD [Primary Care Provider] - 1-2 days Time of Disposition: 18:31
[2020-12-17 19:11] VITALS: BP 165/103; PULSE 85; RESP 12; TEMP 99.8
== END 2020-12-17 19:16 | disposition home or self-care (01) ==
LOC: EC 12:00
DX: O10.911 Unspecified pre-existing hypertension complicating pregnancy, first trimester (principal); F12.90 Cannabis use, unspecified, uncomplicated; Z79.899 Other long term (current) drug therapy; Z3A.08 8 weeks gestation of pregnancy
CPT/HCPCS: 36415; 76801; 76817; 80053; 81001; 83735; 85025; 96374; 99284

== ENCOUNTER → 2020-12-21 | Outpatient (CLI) | payer OTHER | END | disposition home or self-care (01) | LOC: LABWHC1 13:01 | PROVIDERS: ATTEND Obstetrics & Gynecology | DX: O02.1 Missed abortion (principal) | CPT/HCPCS: 36415; 84702 ==

== ENCOUNTER → 2020-12-23 | Outpatient (CLI) | payer OTHER ==
--- NOTE | 2020-12-23 14:16 | US ---
EXAMINATION TYPE: Transabdominal DATE OF EXAM: 12/23/2020 12:56 PM COMPARISON: NONE CLINICAL HISTORY: O76 Abnormal or absent heart sounds. scan was too early to see pole EXAM PERFORMED: OBTA,OBTV EXAM MEASUREMENTS: GESTATIONAL AGE / DATING Physician Established: Not yet established Dates by LMP: (10 weeks/0 days) EDC: 07/21/2021 Dates by First Scan: too early to date Dates by Current Scan for: (6 weeks/1 days) EDC: 08/17/2021 MATERNAL ANATOMY Uterus: 9.3 x 6.8 x 5.8cm Right Ovary: 2.7 x 1.7 x 2.0cm Left Ovary: 2.7 x 2.7 x 2.4cm Post CDS / Adnexa: wnl Presence of free fluid: no Presence of corpus luteal cyst: 1.5 x 1.4 x 1.7cm on the right Presence of subchorionic bleed: wnl GESTATION / SURVEY CRL: 0.4 (6 weeks/1 days) MSD: 1.3 (6 weeks/0 days) Yolk Sac (normal less than 6mm): 0.3cm Heart Rate: 114 bpm Rhythm: Normal IUP: Viable IUP Date of LMP: 10/14/2020 Beta HcG (if available): on 12-21-2020 = 12,000 IMPRESSION: Single live intrauterine measuring 6 weeks and 1 day by sonographic criteria.
== END | disposition home or self-care (01) ==
LOC: RADUSWWP 12:15
PROVIDERS: ATTEND Obstetrics & Gynecology
DX: O76 Abnormality in fetal heart rate and rhythm complicating labor and delivery (principal); Z3A.01 Less than 8 weeks gestation of pregnancy
CPT/HCPCS: 76801; 76817; 84702

== ENCOUNTER → 2021-01-22 | Outpatient (CLI) | payer OTHER ==
--- NOTE | 2021-01-22 15:28 | US ---
EXAMINATION TYPE: Transabdominal DATE OF EXAM: 01/22/2021 1:09 PM COMPARISON: 12/23/2020 CLINICAL HISTORY: O46.91 BLEEDING/SPOTTING. spotting EXAM PERFORMED: Transabdominal (TA) EXAM MEASUREMENTS: GESTATIONAL AGE / DATING Physician Established: (10 weeks/3 days) EDC: 08/17/2021 Dates by LMP: (10 weeks/3 days) EDC: 08/17/2021 Dates by First Scan: (10 weeks/3 days) EDC: 08/17/2021 Dates by Current Scan for: (10 weeks/5 days) EDC: 08/15/2021 MATERNAL ANATOMY Uterus: 10.3 x 5.2 x 8.9 cm Right Ovary: 3.1 x 1.4 x 2.3 cm Left Ovary: 2.5 x 1.5 x 1.8 cm Post CDS / Adnexa: wnl Presence of free fluid: no Presence of corpus luteal cyst: no Presence of subchorionic bleed: no GESTATION / SURVEY CRL: 3.8 cm (10 weeks/5 days) Yolk Sac (normal less than 6mm): 4mm Heart Rate: 172 bpm Rhythm: Normal IUP: Viable IUP Beta HcG (if available): Not available at this time IMPRESSION: Single live intrauterine measuring 10 weeks and 5 days gestation by sonographic criteria.
== END | disposition home or self-care (01) ==
LOC: RADUSWWP 13:08
PROVIDERS: ATTEND Obstetrics & Gynecology
DX: O46.91 Antepartum hemorrhage, unspecified, first trimester (principal); Z3A.10 10 weeks gestation of pregnancy
CPT/HCPCS: 76801

== ENCOUNTER 2021-06-21 15:29 | Outpatient (CLI) | payer OTHER ==
[2021-06-21 16:11] LABS: Basophils % (A) 0 %; Eosinophils # (A) 0.1 k/uL (0-0.7); Eosinophils % (A) 1 %; HCT 32.9 % (34.0-46.0); HGB 11.1 gm/dL (11.4-16.0); Lymphocytes # (A) 1.5 k/uL (1.0-4.8); Lymphocytes % (A) 16 %; MCH 29.9 pg (25.0-35.0); MCHC 33.9 g/dL (31.0-37.0); MCV 88.4 fL (80.0-100.0); Monocytes # (A) 0.7 k/uL (0-1.0); Monocytes % (A) 7 %; Neutrophils # (A) 7.1 k/uL (1.3-7.7); Neutrophils % (A) 74 %; Platelet Count 272 k/uL (150-450); RBC 3.73 m/uL (3.80-5.40); RDW 13.1 % (11.5-15.5); WBC 9.6 k/uL (3.8-10.6)
[2021-06-21 16:25] LABS: Appearance,Urine Cloudy (Clear); Bilirubin,Urine Negative (Negative); Blood,Urine Negative (Negative); Budding Yeast,Urine Few /hpf; Color,Urine Yellow; Glucose,Urine (UA) Negative (Negative); Ketones,Urine Negative (Negative); Leukocyte Esterase,Urine Negative (Negative); Mucus,Urine Few /hpf; Nitrite,Urine Negative (Negative); PH, Urine 6.5 (5.0-8.0); Protein,Urine Trace (Negative); RBC,Urine 1 /hpf (0-5); Specific Gravity,Urine 1.021 (1.001-1.035); Squamous Epithelial Cell,Urine 7 /hpf (0-4); Urobilinogen,Urine <2.0 mg/dL (<2.0); WBC,Urine 4 /hpf (0-5)
[2021-06-21 16:33] LABS: ALT 10 U/L (4-34); AST 14 U/L (14-36); African American GFR (CKD) >90 (>60 ml/min/1.73 sqM); Blood Urea Nitrogen 8 mg/dL (7-17); LDH 274 U/L (313-618); Non-African American GFR(CKD) >90 (>60 ml/min/1.73 sqM); Uric Acid 3.5 mg/dL (3.7-7.4)
[2021-06-21 17:11] VITALS: RESP 16; TEMP 98.6
[2021-06-21 17:34] LABS: Creatinine,Urine Random 163.4 mg/dL; Protein/Creatinine Ratio,Urine 0.061
--- NOTE | 2021-06-21 17:59 | P.PN ---
Progress Note - Text Progress Note Date: 06/21/21 Judy was sent over from my office due to elevated blood pressure. She does have chronic hypertension. Her blood pressures have been normal throughout the until today. Her blood pressures minimally elevated at 140s over 90s. She will return to our office on for nonstress test and blood pressure check. Preeclamptic labs are all normal in her protein creatinine ratios 0.06 and she denies headache, epigastric pain or other signs or symptoms of preeclampsia including visual changes. All the questions are answered for her at this time. We'll discharge her home.
[2021-06-21 18:08] VITALS: BP 139/94; PULSE 90
== END 2021-06-21 17:59 | disposition home or self-care (01) ==
LOC: FBPOP 15:29
PROVIDERS: ATTEND Obstetrics & Gynecology
DX: O13.3 Gestational [pregnancy-induced] hypertension without significant proteinuria, third trimester (principal); Z3A.32 32 weeks gestation of pregnancy
CPT/HCPCS: 59025; 82570; 84156; 82565; 83615; 84450; 84460; 84520; 84550; 85025; 81001; G0463; 99215

== ENCOUNTER 2021-06-29 11:10 | Outpatient (CLI) | payer OTHER ==
[2021-06-29 11:56] LABS: Basophils % (A) 0 %; Eosinophils # (A) 0.2 k/uL (0-0.7); Eosinophils % (A) 2 %; HCT 31.6 % (34.0-46.0); HGB 10.7 gm/dL (11.4-16.0); Lymphocytes # (A) 1.3 k/uL (1.0-4.8); Lymphocytes % (A) 13 %; MCH 30.3 pg (25.0-35.0); MCV 89.2 fL (80.0-100.0); Mean Platelet Volume 7.9; Monocytes # (A) 0.5 k/uL (0-1.0); Monocytes % (A) 5 %; Neutrophils # (A) 7.9 k/uL (1.3-7.7); Neutrophils % (A) 78 %; Platelet Count 268 k/uL (150-450); RBC 3.54 m/uL (3.80-5.40); RDW 14.3 % (11.5-15.5); WBC 10.1 k/uL (3.8-10.6)
[2021-06-29 12:11] LABS: Appearance,Urine Cloudy (Clear); Bacteria,Urine Rare /hpf; Bilirubin,Urine Negative (Negative); Blood,Urine Negative (Negative); Color,Urine Yellow; Glucose,Urine (UA) Negative (Negative); Ketones,Urine Negative (Negative); Leukocyte Esterase,Urine Large (Negative); Mucus,Urine Few /hpf; Nitrite,Urine Negative (Negative); PH, Urine 8.5 (5.0-8.0); Protein,Urine 1+ (Negative); RBC,Urine <1 /hpf (0-5); Specific Gravity,Urine 1.022 (1.001-1.035); Squamous Epithelial Cell,Urine 19 /hpf (0-4); Urobilinogen,Urine <2.0 mg/dL (<2.0); WBC,Urine 9 /hpf (0-5)
[2021-06-29 12:13] LABS: ALT 10 U/L (4-34); AST 16 U/L (14-36); African American GFR (CKD) >90 (>60 ml/min/1.73 sqM); Blood Urea Nitrogen 8 mg/dL (7-17); LDH 306 U/L (313-618); Non-African American GFR(CKD) >90 (>60 ml/min/1.73 sqM); Uric Acid 3.7 mg/dL (3.7-7.4)
[2021-06-29 12:42] LABS: Creatinine,Urine Random 164.9 mg/dL; Protein/Creatinine Ratio,Urine 0.049
[2021-06-29 13:06] VITALS: BP 137/89; PULSE 103; RESP 16; TEMP 97.7
== END 2021-06-29 12:59 | disposition home or self-care (01) ==
LOC: FBPOP 11:10
PROVIDERS: ATTEND Obstetrics & Gynecology
DX: O13.3 Gestational [pregnancy-induced] hypertension without significant proteinuria, third trimester (principal); O14.93 Unspecified pre-eclampsia, third trimester; Z3A.33 33 weeks gestation of pregnancy
CPT/HCPCS: 59025; 81001; 82565; 82570; 83615; 84156; 84450; 84460; 84520; 84550; 85025

== ENCOUNTER 2021-07-13 15:27 | Outpatient (CLI) | payer OTHER ==
[2021-07-13 15:53] VITALS: BP 136/65; PULSE 90; RESP 18; TEMP 98
[2021-07-13 16:17] LABS: Amorphous Sediment,Urine Few /hpf; Appearance,Urine Cloudy (Clear); Bilirubin,Urine Negative (Negative); Blood,Urine Negative (Negative); Color,Urine Yellow; Glucose,Urine (UA) Negative (Negative); Ketones,Urine Negative (Negative); Leukocyte Esterase,Urine Small (Negative); Mucus,Urine Moderate /hpf; Nitrite,Urine Negative (Negative); PH, Urine 7.5 (5.0-8.0); Protein,Urine 1+ (Negative); RBC,Urine <1 /hpf (0-5); Specific Gravity,Urine 1.022 (1.001-1.035); Squamous Epithelial Cell,Urine 11 /hpf (0-4); Urobilinogen,Urine <2.0 mg/dL (<2.0); WBC,Urine 8 /hpf (0-5)
[2021-07-13 16:27] LABS: Basophils % (A) 0 %; Eosinophils # (A) 0.1 k/uL (0-0.7); Eosinophils % (A) 1 %; HGB 10.8 gm/dL (11.4-16.0); Lymphocytes # (A) 1.5 k/uL (1.0-4.8); Lymphocytes % (A) 15 %; MCHC 33.7 g/dL (31.0-37.0); MCV 89.1 fL (80.0-100.0); Mean Platelet Volume 8.3; Monocytes # (A) 0.6 k/uL (0-1.0); Monocytes % (A) 6 %; Neutrophils # (A) 7.6 k/uL (1.3-7.7); Neutrophils % (A) 76 %; Platelet Count 267 k/uL (150-450); RBC 3.59 m/uL (3.80-5.40); RDW 14.1 % (11.5-15.5)
[2021-07-13 16:37] LABS: ALT 9 U/L (4-34); AST 17 U/L (14-36); African American GFR (CKD) >90 (>60 ml/min/1.73 sqM); Blood Urea Nitrogen 6 mg/dL (7-17); LDH 490 U/L (313-618); Non-African American GFR(CKD) >90 (>60 ml/min/1.73 sqM); Uric Acid 3.7 mg/dL (3.7-7.4)
[2021-07-13 16:57] LABS: Creatinine,Urine Random 185.1 mg/dL; Protein/Creatinine Ratio,Urine 0.049
== END 2021-07-13 17:14 ==
LOC: FBPOP 15:27
PROVIDERS: ATTEND Obstetrics & Gynecology
DX: O13.3 Gestational [pregnancy-induced] hypertension without significant proteinuria, third trimester (principal); Z3A.35 35 weeks gestation of pregnancy
CPT/HCPCS: 59025; 82570; 84156; 82565; 83615; 84450; 84460; 84520; 84550; 85025; 81001; G0463; 99215

== ENCOUNTER 2021-07-16 13:06 | Outpatient (CLI) | payer OTHER ==
[2021-07-16] MEDS ORDERED: LABETALOL 200 MG TAB PO STA (13:41)
[2021-07-16 15:22] VITALS: BP 157/98; PULSE 98; RESP 14; TEMP 98.2
== END 2021-07-16 15:24 | disposition home or self-care (01) ==
LOC: FBPOP 13:06
PROVIDERS: ATTEND Obstetrics & Gynecology
DX: O13.3 Gestational [pregnancy-induced] hypertension without significant proteinuria, third trimester (principal); Z3A.35 35 weeks gestation of pregnancy
CPT/HCPCS: 59025; G0463; 99213

== ENCOUNTER 2021-07-26 05:53 | Inpatient (IN) | payer OTHER ==
[2021-07-26] MEDS ORDERED: METHYLERGONOVINE 0.2 MG/ML 1 ML AMP IM PRN (06:10)
[2021-07-26] MEDS ORDERED: OXYTOCIN 10 UNIT/ML 1 ML VIAL IM PRN (06:10)
[2021-07-26] MEDS ORDERED: LIDOCAINE 1% (PF) 10 MG/ML (30 ML SDV) SQ PRN (06:10)
[2021-07-26] MEDS ORDERED: CARBOPROST TROMETHAMINE 250 MCG/ML 1 ML AMP IM PRN (06:10)
[2021-07-26] MEDS ORDERED: TERBUTALINE 1 MG/ML VIAL SQ PRN (06:10)
[2021-07-26] MEDS ORDERED: OXYTOCIN 30 UNITS/500 ML NS 30 UNIT in SALINE 1 500ML.BAG IV SCH (06:15)
[2021-07-26 06:20] VITALS: RESP 16
[2021-07-26 06:25] LABS: Basophils % (A) 1 %; Eosinophils # (A) 0.2 k/uL (0-0.7); Eosinophils % (A) 2 %; HCT 32.5 % (34.0-46.0); HGB 11.2 gm/dL (11.4-16.0); Lymphocytes % (A) 24 %; MCH 30.4 pg (25.0-35.0); MCHC 34.5 g/dL (31.0-37.0); Monocytes # (A) 0.6 k/uL (0-1.0); Monocytes % (A) 7 %; Neutrophils # (A) 5.6 k/uL (1.3-7.7); Neutrophils % (A) 66 %; Platelet Count 264 k/uL (150-450); RBC 3.69 m/uL (3.80-5.40); RDW 14.3 % (11.5-15.5); WBC 8.6 k/uL (3.8-10.6)
[2021-07-26 06:36] LABS: ALT 11 U/L (4-34); AST 18 U/L (14-36); African American GFR (CKD) >90 (>60 ml/min/1.73 sqM); Blood Urea Nitrogen 9 mg/dL (7-17); LDH 315 U/L (313-618); Non-African American GFR(CKD) >90 (>60 ml/min/1.73 sqM); Uric Acid 4.3 mg/dL (3.7-7.4)
[2021-07-26] MEDS: LACTATED RINGERS 1,000 ML IV SCH ×2 (06:42→10:50)
--- NOTE | 2021-07-26 08:36 | P.HPOB ---
History of Present Illness H&P Date: 07/26/21 Chief Complaint: Intrauterine at term: Chronic hypertension that is worsening Judy is a 18-year-old at 37 weeks gestation who arrives for induction of labor due to chronic hypertension with worsening blood pressures. Blood pressures today have been elevated including 150/109. She normally takes labetalol 4 mg twice daily and aspirin. We'll plan continue this through the day. If she did not take her labetalol this morning we will give her a dose shortly. IV labetalol still is a possibility should it be needed. She has no signs or symptoms of preeclampsia and thus far the labs for preeclampsia have been normal. Otherwise she is gerry all somewhat irregularly artificial rupture membranes was performed with clear fluid noted a category 1 tracing is noted she is dilated to 270% effaced and -3 station. She plans epidural for analgesia. Plan Pitocin augmentation of labor. Past Medical History Past Medical History: Hypertension Additional Past Medical History / Comment(s): chronic HTN History of Any Multi-Drug Resistant Organisms: None Reported Past Surgical History: Adenoidectomy Additional Past Surgical History / Comment(s): tubes in ears Additional Past Anesthesia/Blood Transfusion Reaction / Comment(s): increased BP after anesthesia Past Psychological History: Anxiety, Depression Smoking Status: Never smoker Past Alcohol Use History: None Reported Past Drug Use History: Marijuana - Past Family History Mother Family Medical History: No Reported History Medications and Allergies Home Medications Medication Instructions Recorded Confirmed Type Labetalol HCl [Trandate] 400 mg PO BID 06/21/21 07/26/21 History Pnv No.95/Ferrous Fum/Folic AC 1 each PO DAILY 06/21/21 07/26/21 History [ Multivitamin Tablet] Aspirin 81 mg PO DAILY 06/29/21 07/26/21 History Allergies Allergy/AdvReac Type Severity Reaction Status Date / Time No Known Allergies Allergy Verified 07/26/21 06:09 Exam Osteopathic Statement: *. No significant issues noted on an osteopathic structural exam other than those noted in the History and Physical/Consult. Vital Signs Temp Pulse Resp BP 07/26/21 06:09 96.9 F L 97 16 143/101 Intake and Output 07/25/21 07/26/21 07/26/21 22:59 06:59 14:59 Other: Weight 100.244 kg - OBG Physical Exam Breast: both: normal (no masses) Abdomen: bowel sounds normal, no diffuse tenderness, no bruit present, no guarding noted, no hepatomegaly, no splenomegaly, no mass Vulva: both: normal Vagina: normal moisture, no discharge Cervix: no lesion, no discharge Uterus: normal size, normal contour Adnexa: both: normal Anus/Rectum: normal perianal skin, no rectal mass, no hemorrhoids, heme negative Results Result Diagrams: 07/26/21 06:05 07/26/21 06:05 Abnormal Lab Results - Last 24 Hours (Table) 07/26/21 07/26/21 Range/Units 06:05 06:05 RBC 3.69 L (3.80-5.40) m/uL Hgb 11.2 L (11.4-16.0) gm/dL Hct 32.5 L (34.0-46.0) % Creatinine 0.48 L (0.52-1.04) mg/dL
[2021-07-26] MEDS: PRENATAL VIT-IRON-FOLIC ACID 1 EACH CAP PO SCH (08:45)
[2021-07-26] MEDS: LABETALOL 200 MG TAB PO SCH ×2 (08:45→20:32)
[2021-07-26] MEDS ORDERED: ROPIVACAINE 5MG/ML 20ML VIAL ONE (10:38)
[2021-07-26] MEDS ORDERED: SODIUM CHLORIDE 0.9% 100 ML BAG ONE (10:38)
[2021-07-26] MEDS ORDERED: fentaNYL (PF) 50 MCG/ML 5 ML AMP ONE (10:38)
[2021-07-26] MEDS ORDERED: BENZOCAINE/MENTHOL SPRAY 1 GM/SPRAY AEROSOL TOPICAL PRN (12:32)
[2021-07-26] MEDS ORDERED: SIMETHICONE 80 MG CHEWABLE PO PRN (12:32)
[2021-07-26] MEDS ORDERED: ZOLPIDEM 5 MG TAB PO PRN (12:32)
[2021-07-26] MEDS ORDERED: diphenhydrAMINE 50 MG CAP PO PRN (12:32)
[2021-07-26] MEDS ORDERED: HYDROCORTISONE 2.5% RECTAL CREAM 30 GM TUBE RECTAL PRN (12:32)
[2021-07-26] MEDS ORDERED: diphenhydrAMINE 25 MG CAP PO PRN (12:32)
[2021-07-26] MEDS ORDERED: LANOLIN CREAM 5 GM TUBE TOPICAL PRN (12:32)
[2021-07-26] MEDS ORDERED: ACETAMINOPHEN TAB 325 MG TAB PO PRN (12:32)
[2021-07-26] MEDS ORDERED: diphenhydrAMINE 50 MG/ML 1 ML VIAL IVP PRN ×2 (12:32)
--- NOTE | 2021-07-26 12:34 | P.PROBDLV ---
Vaginal Delivery Note - . Vaginal Delivery Note: Patient progressed complete and pushing with spontaneous vaginal delivery of a viable female over an intact perineum from right [place] anterior position. Lung deliver the head
[2021-07-26] MEDS: IBUPROFEN 600 MG TAB PO SCH (14:20)
[2021-07-26] MEDS: SENNOSIDES-DOCUSATE SODIUM 1 EACH TAB PO SCH (20:19)
[2021-07-27] MEDS: IBUPROFEN 600 MG TAB PO SCH ×2 (00:20→03:21)
[2021-07-27] MEDS: LACTATED RINGERS 1,000 ML IV SCH (00:23)
[2021-07-27 07:43] VITALS: BP 131/85; PULSE 97; TEMP 98.5
--- NOTE | 2021-07-27 08:21 | P.DS ---
Providers Date of admission: 07/26/21 05:53 Expected date of discharge: 07/27/21 Attending physician: Tra Maria Primary care physician: Stated None Hospital Course: Judy is doing very well day 1. She is ambulating, voiding and tolerating her diet. She voices no complaints. Vital signs stable and afebrile. Heart regular, lungs clear, remedies without pain. Abdomen is soft and uterus is firm. Lochia is reported be light. Assessment day 1. Plan discharged home follow up with me in 6 weeks. Pressure for Motrin was 4 to the pharmacy. She'll follow up with her primary care doctor week blood pressure evaluation and preeclamptic discussion and risks were explained. Patient Condition at Discharge: Good Plan - Discharge Summary Discharge Rx Participant: No New Discharge Prescriptions: New Ibuprofen [Motrin] 600 mg PO Q6HR PRN #30 tab PRN Reason: Pain No Action Pnv No.95/Ferrous Fum/Folic AC [ Multivitamin Tablet] 1 each PO DAILY Labetalol HCl [Trandate] 400 mg PO BID RX: Aspirin 81 mg PO DAILY Discharge Medication List Labetalol HCl [Trandate] 400 mg PO BID 06/21/21 [History] Pnv No.95/Ferrous Fum/Folic AC [ Multivitamin Tablet] 1 each PO DAILY 06/21/21 [History] RX: Aspirin 81 mg PO DAILY 06/29/21 [History] Ibuprofen [Motrin] 600 mg PO Q6HR PRN #30 tab 07/27/21 [Rx] Follow up Appointment(s)/Referral(s): Tra Maria DO [Doctor of Osteopathic Medicine] - 08/23/21 3:15 pm Activity/Diet/Wound Care/Special Instructions: , Limit stairs and driving, and pelvic rest. If any high temperatures, heavy bleeding, murmurs or severe pain call our office. She is still where there is slight risk of preeclampsia and will monitor for symptoms of severe headache, epigastric pain or visual changes and reports the emergency room in this situation. She'll follow up with her primary care provider in 1 week for reevaluation
[2021-07-27] MEDS: SENNOSIDES-DOCUSATE SODIUM 1 EACH TAB PO SCH (08:28)
[2021-07-27] MEDS: PRENATAL VIT-IRON-FOLIC ACID 1 EACH CAP PO SCH (08:28)
[2021-07-27] MEDS: LABETALOL 200 MG TAB PO SCH (08:29)
== END 2021-07-27 14:17 | disposition home or self-care (01) | DRG 807 ==
LOC: 4FBP 05:53
PROVIDERS: ADMIT Obstetrics & Gynecology; ATTEND Obstetrics & Gynecology
PROC: 10E0XZZ Delivery of Products of Conception, External Approach (ICD-10-PCS; principal; 2021-07-26)
DX: O10.92 Unspecified pre-existing hypertension complicating childbirth (principal); Z37.0 Single live birth; O11.4 Pre-existing hypertension with pre-eclampsia, complicating childbirth; F32.A Depression, unspecified; F41.9 Anxiety disorder, unspecified; O99.344 Other mental disorders complicating childbirth; Z3A.37 37 weeks gestation of pregnancy; Z79.82 Long term (current) use of aspirin
CPT/HCPCS: 82565; 83615; 84450; 84460; 84520; 84550; 85025; 86850; 86900; 86901